=== PATIENT | female | born 1935 | race Caucasian/White ===

== ENCOUNTER 2019-09-08 09:01 | Outpatient (CLI) | payer MEDICARE ==
--- NOTE | 2019-09-08 09:52 | RAD ---
2 VIEWS CHEST: Date: 09/08/2019 COMPARISON: 11/18/2018. HISTORY: Dyspnea. FINDINGS: 2 views of the chest show an enlarged but stable cardiomediastinal silhouette. The pacemaker is uncha nged in position. Atherosclerotic calcifications are seen in the aorta. There is no evidence of conso lidation, mass, or pleural effusion. Degenerative changes are seen in the spine. IMPRESSION: No evidence of acute cardiopulmonary disease. POS: [facility]
== END 2019-09-08 09:02 | disposition home or self-care (01) ==
LOC: RAD 09:01
PROVIDERS: ATTEND Internal Medicine Critical Care Medicine
DX: R06.00 Dyspnea, unspecified (principal)
CPT/HCPCS: 36415; 71046; 85610